=== PATIENT | female | born 2005 | race American Indian/Alaskan Native ===

== ENCOUNTER 2024-08-16 18:07 | Observation (INO) ==
--- NOTE | 2024-08-16 18:15 | ED Triage Note ---
Date of Service August 16, 2024 Provider in Triage Author: Shante Ontiveros History of Present Illness This patient was briefly evaluated while in triage. An abbreviated physical exam was performed. This patient is a 18-year-old Female who presents to the ED for evaluation of lower abdominal pain. States "I can barely walk at this point, it's so bad." States concern for UTI, ovarian cyst, or endometriosis based on family history. Denies UTI symptoms at this time. Onset of pain Wednesday. Last dose Tylenol yesterday. Menstrual period started 08/09/2024, but lasting longer than normal. Physical Exam VITALS: Vitals are noted on the nurse's note and reviewed by myself. GENERAL: This is a 18 year old female, in no acute distress, nondiaphoretic, well-developed well-nourished. SKIN: No obvious rashes, edema, erythema HEAD: Normocephalic atraumatic. EYES: Conjunctivae without injection, sclerae without icterus. NECK: No JVD. LUNGS: No retractions or accessory muscle use. MUSCULOSKELETAL: Normal gait. NEURO: Patient was alert and oriented to person place and time. No focal neurological deficits. Initial orders for labs and / or imaging were placed and patient was placed in the waiting area until a bed is available. Please see further documentation for the full ED course.
[2024-08-16] MEDS: ONDANSETRON INJ 2 MG/ML 2 ML VIAL IV STA (18:22)
[2024-08-16] MEDS: KETOROLAC TROMETHAMINE 15 MG/ML VIAL IV STA (18:22)
[2024-08-16 18:41] LABS: Basophils # (auto) 0.09 K/uL (0.00-0.20); Basophils % (auto) 0.5 %; Eosinophils # (auto) 0.09 K/uL (0.00-0.50); Eosinophils % (auto) 0.5 %; Hematocrit (blood only) 39.4 % (37.0-47.0); Hemoglobin 13.2 g/dl (12.0-16.0); Immature Granulocytes # (auto) 0.06 K/uL (0.01-0.20); Immature Granulocytes % (auto) 0.3 %; Lymphocytes # (auto) 1.52 K/uL (1.20-3.40); Lymphocytes % (auto) 7.8 %; Mean Corpuscular Hemoglobin 30.2 pg (25.0-34.0); Mean Corpuscular Hgb Conc 33.5 g/dL (32.0-36.0); Mean Corpuscular Volume 90.2 fL (80.0-100.0); Monocytes # (auto) 1.04 K/uL (0.11-0.59); Monocytes % (auto) 5.4 %; Neutrophils # (auto) 16.58 K/uL (1.40-6.50); Neutrophils % (auto) 85.5 %; Platelet Count 293 K/uL (130-400); RDW Standard Deviation 42.8 fL (36.4-46.3); Red Blood Count 4.37 M/uL (4.20-5.40); White Blood Count 19.38 K/ul (4.8-10.8)
[2024-08-16 18:50] LABS: Albumin Globulin Ratio 1.7 (0.9-2); Albumin Level 4.9 gm/dl (3.4-5.0); BUN Creatinine Ratio 23.9 (10-20); Bilirubin,Total 0.5 mg/dl (0.2-1.0); Calcium 9.8 mg/dl (8.6-10.3); Creatinine Clr Calc Pharmacy 109.5 ml/min; Globulin 2.9 gm/dl (2.5-4.0); Potassium 3.9 mmol/L (3.5-5.1); Total Protein 7.8 gm/dl (6.0-8.3)
[2024-08-16 18:53] LABS: Pregnancy Test, Serum Negative (Negative)
[2024-08-16] MEDS: SODIUM CHLORIDE 0.9% 1,000 ML IV ONE (21:06)
[2024-08-16] MEDS: ACETAMINOPHEN 1,000 MG/100 ML VIAL IV STA (21:06)
[2024-08-16] MEDS: OPTIRAY 320 100ml IV ONE (21:31)
--- NOTE | 2024-08-16 21:31 | Emergency Department Note ---
Impression & Plan Abdominal pain, Leukocytosis ED Provider Note ED Provider Note NAME: TYRONE BEATTY AGE:18 SEX: Female : 2005 ARRIVES VIA: Private vehicle INFORMANT: Patient ED PROVIDER(s): Rachel Huynh DO CHIEF COMPLAINT: Lower abdominal pain HPI: This is a 18-year-old female who presents emergency room complaining of lower abdominal pain. She states she had mild lower abdominal pain the last 2 days however today it seemed worse when she was moving around more. She states some of the pain does seem to go into her low back. She states it seems slightly worse on the left than the right. She denies fevers or chills but states she did have some hot and cold episodes but did not take her temperature. No recent change in bowel movements or urinary habits. No recent abnormal vaginal discharge or bleeding. Patient is sexually active, no new partners, no new concern for STD exposure. No dysparunia. No rash/sores. Patient states she has IBS, no other history of GI problems or prior abdominal surgeries. No recent URI symptoms. No recent change in medications or diet. PAST MEDICAL HISTORY:See Below PAST SURGICAL HISTORY:See Below FAMILY HISTORY:See Below SOCIAL HISTORY:See Below HOME MEDICATIONS:See Below ALLERGIES:See Below VITALS:See Below PHYSICAL EXAMINATION: GENERAL: alert, well appearing, well nourished, no distress, non-toxic EYE EXAM: normal conjunctiva, PERRL and EOM's grossly intact OROPHARYNX: no exudate, no erythema, lips, buccal mucosa, and tongue normal and mucous membranes are moist NECK: supple, no nuchal rigidity, no adenopathy, non-tender LUNGS: Clear to auscultation. Normal chest wall mechanics, no w/r/r HEART: no murmurs, S1 normal and S2 normal ABDOMEN: abdomen soft, pain with palpation in the LLQ/left suprapubic region, normo-active bowel sounds, no masses, no rebound or guarding. BACK: Back is symmetrical on inspection and there is no deformity, no CVA tenderness.MIld pain with palpation across the entire lumbar region. SKIN: no rashes, petechiae, orbruising UPPER EXTREMITIES: upper extremities are grossly normal. FROM, nml pulses b/l. LOWER EXTREMITIES: No pitting edema. FROM, nml pulses b/l. NEURO EXAM: Normal sensorium, cranial nerves II-XII grossly intact, normal speech, no facial droop,nogross weakness of arms, no gross weakness of legs. Gross sensation intact. No ataxia. Vital Signs: reviewed and remarkable Differential Diagnosis: Appendicitis, ovarian cyst, ovarian torsion, ectopic , TOA, PID, infections, diverticulitis, UTI, obstruction, mesenteric ischemia, aortic pathology, inflammatory bowel disease, renal colic, PUD, pancreatitis, biliary pathology, hernia, volvulus, constipation, as well as other pathologies. MEDICAL DECISION MAKING: This is a 18-year-old female who presents to the emergency department due to concern for left lower quadrant abdominal pain. Patient was concern for GI or etiology due to family history. She was afebrile and hemodynamically stable. Labs drawn and sent, IV established, patient monitored on telemetry. Urine was collected and sent and patient sent for pelvic ultrasound. Pelvic ultrasound reassuring. Labs revealed significant leukocytosis of greater than 19. Patient given IV Toradol, IV Tylenol, started on IV fluids. After discussion of differential diagnosis and her concerns in light of family history, we discussed additional CT imaging. Patient sent for CT of the abdomen and pelvis. We discussed all results at bedside. Patient complained of persistent pain. She was given a repeat dose of IV Toradol as well as oral Bentyl. Despite being well-appearing she complained of persistent pain and unclear etiology of the leukocytosis. Patient did have some nausea and metoclopramide was added. Patient given a second liter of IV fluids however still complaining of pain. Due to unclear etiology of pain failing nonnarcotic medications and accompanying significant leukocytosis, we discussed additional inpatient evaluation and she was in agreement. Case discussed with the hospitalist team for additional evaluation and management. Patient then given a dose of IV morphine once decision made for additional inpatient evaluation. Consultation: [id number]: Discussed with Dr. Sheldon, MD hospitalist team, for additional evaluation and mgmt. ER Treatment Provided: See below Diagnostics Interpreted By Me: -Cardiac Monitoring: An order was placed for continuous cardiac monitoring. The monitor shows a rate of 62 with normal sinus rhythm. -Laboratory studies: As stated above and show below. -Imaging studies: CT a/p - no ureterolithiasis, no diverticulitis Triage Nursing Note Reviewed Prior/Outside Records Reviewed Past Med/Surg History Problem List (Updated 08/17/24 @ 17:11 by Zoya Guerrero MD) Screening for STD (sexually transmitted disease) Vaginal discharge Adnexal tenderness, left Allergic reaction Leukocytosis (Acute) Abdominal pain (Acute) Medical History No significant past medical history Surgical History No significant past surgical history Family History Other Endometriosis Renal stone Social History Smoking Status: Never smoker Second Hand Exposure: No; Do You Dip or Chew Tobacco: No; Hx Alcohol Use: No Hx Substance Use: No Preferred Language: Tajik Communication Ability: Effective Learning Disabilities Resource Teacher Required: No Beliefs That Will Affect Care: None marital status: Single Current Living Situation: Family Current Living Situation Comment: sister current occupational status: student Feels Safe at Home: Yes Assistive Devices: None Allergies Allergies Allergy/AdvReac Type Severity Reaction Status Date / Time metoclopramide [From Reglan] Allergy Mild edema Verified 08/17/24 02:12 No Known Drug Allergies AdvReac Verified 04/18/24 14:41 pitted fruits Allergy Intermediate Uncoded 04/18/24 14:41 Home Meds Previous Rx's Medication Instructions Recorded dicyclomine 10 mg capsule 10 mg PO TID PRN abdominal pain 08/16/24 #20 caps doxycycline hyclate 100 mg capsule 100 mg PO BID #25 caps 08/18/24 Results & Data (ED) Vital Signs Vital Signs - 24 hr 08/16/24 18:11 08/16/24 19:50 08/16/24 19:50 Temperature 36.7 C Temperature Source Temporal Artery Scan Pulse Rate 102 H 68 Pulse Rate [Right Finger] 68 Pulse Rhythm Regular Pulse Rhythm [Right Finger] Regular Pulse Strength [Right Finger] Normal Respiratory Rate 18 13 13 Respiratory Effort / Characteristics Non-Labored Respiratory Depth Normal Respiratory Pattern Regular Blood Pressure 140/81 Blood Pressure [Left Arm] 112/68 Blood Pressure Mean 100 Blood Pressure Mean [Left Arm] 82 Blood Pressure Position [Left Arm] Lying Pulse Oximetry 98 96 96 Oxygen Delivery Method Room Air Room Air Room Air Sepsis Recent Fever Within 48 Hours No Sepsis New/Unexplained Change in Mental Status N/A Sepsis Action Taken by Nursing No Action Required 08/16/24 20:06 08/16/24 21:05 08/16/24 23:33 Temperature Temperature Source Pulse Rate 69 Pulse Rate [Right Finger] 67 61 Pulse Rhythm Pulse Rhythm [Right Finger] Regular Regular Pulse Strength [Right Finger] Normal Normal Respiratory Rate 16 20 Respiratory Effort / Characteristics Non-Labored Non-Labored Respiratory Depth Normal Normal Respiratory Pattern Regular Regular Blood Pressure Blood Pressure [Left Arm] 115/57 L 109/61 Blood Pressure Mean Blood Pressure Mean [Left Arm] 76 77 Blood Pressure Position [Left Arm] Lying Lying Pulse Oximetry 100 97 Oxygen Delivery Method Room Air Room Air Sepsis Recent Fever Within 48 Hours Sepsis New/Unexplained Change in Mental Status Sepsis Action Taken by Nursing 08/17/24 00:00 08/17/24 01:02 Temperature Temperature Source Pulse Rate 60 Pulse Rate [Right Finger] 53 L Pulse Rhythm Pulse Rhythm [Right Finger] Regular Pulse Strength [Right Finger] Normal Respiratory Rate 17 Respiratory Effort / Characteristics Non-Labored Respiratory Depth Normal Respiratory Pattern Regular Blood Pressure Blood Pressure [Left Arm] 109/65 Blood Pressure Mean Blood Pressure Mean [Left Arm] 79 Blood Pressure Position [Left Arm] Lying Pulse Oximetry 100 Oxygen Delivery Method Room Air Sepsis Recent Fever Within 48 Hours Sepsis New/Unexplained Change in Mental Status Sepsis Action Taken by Nursing Laboratory Data 08/18/24 06:36 08/18/24 06:36 Lab Results 08/16/24 08/16/24 Range/Units 18:19 22:15 WBC 19.38 H (4.8-10.8) K/ul RBC 4.37 (4.20-5.40) M/uL Hgb 13.2 (12.0-16.0) g/dl Hct 39.4 (37.0-47.0) % MCV 90.2 (80.0-100.0) fL MCH 30.2 (25.0-34.0) pg MCHC 33.5 (32.0-36.0) g/dL RDW Std Deviation 42.8 (36.4-46.3) fL RDW Coeff of Drea 13.0 (11.5-14.5) % Plt Count 293 (130-400) K/uL MPV 12.0 (9.4-12.4) fL Immature Gran % (Auto) 0.3 % Neut % (Auto) 85.5 % Lymph % (Auto) 7.8 % [place] % (Auto) 5.4 % Eos % (Auto) 0.5 % Baso % (Auto) 0.5 % Neut # (Auto) 16.58 H (1.40-6.50) K/uL Lymph # (Auto) 1.52 (1.20-3.40) K/uL [place] # (Auto) 1.04 H (0.11-0.59) K/uL Eos # (Auto) 0.09 (0.00-0.50) K/uL Baso # (Auto) 0.09 (0.00-0.20) K/uL Immature Gran # (Auto) 0.06 (0.01-0.20) K/uL Sodium 140 (136-145) mmol/L Potassium 3.9 (3.5-5.1) mmol/L Chloride 107 (98-107) mmol/L Carbon Dioxide 25 (21-32) mmol/L Anion Gap 8 (3-11) BUN 16 (6-23) mg/dl Creatinine 0.67 (0.6-1.2) mg/dl Est Cr Clr Drug Dosing 109.5 ml/min eGFR 128.24 BUN/Creatinine Ratio 23.9 H (10-20) Glucose 109 H (70-99(Fasting)) mg/dl Calcium 9.8 (8.6-10.3) mg/dl Total Bilirubin 0.5 (0.2-1.0) mg/dl AST 14 (13-39) U/L ALT 10 (7-52) U/L Alkaline Phosphatase 59 (34-104) U/L Total Protein 7.8 (6.0-8.3) gm/dl Albumin 4.9 (3.4-5.0) gm/dl Globulin 2.9 (2.5-4.0) gm/dl Albumin/Globulin Ratio 1.7 (0.9-2) Lipase 21 (11-82) U/L HCG, Qual Negative (Negative) Urine Color Yellow Urine Appearance Clear (Clear) Urine pH 6.5 (4.5-7.5) Ur Specific [place] > 1.045 H (1.000-1.030) Urine Protein Negative (Negative) Urine Glucose (UA) Negative (Negative) Urine Ketones Negative (Negative) Urine Blood 1+ H (Negative) Urine Nitrite Negative (Negative) Urine Bilirubin Negative (Negative) Urine Urobilinogen Negative (Negative) Ur Leukocyte Esterase Negative (Negative) Urine WBC (Auto) 21-50 H (0-5) /hpf Urine RBC (Auto) 3-5 H (0-2) /hpf U Hyaline Cast (Auto) 0-2 (0-2) /lpf U Epithel Cells (Auto) 0-2 (0-2) /hpf Urine Bacteria (Auto) None Seen (None Seen) Administered Medications Discontinued Medications Acetaminophen (Acetaminophen 325 Mg Tab) 650 mg PO Q4H PRN PRN Reason: Pain or Fever Stop: 09/16/24 02:41 Last Admin: 08/18/24 08:21 Dose: 650 mg Documented By: NATE Ceftriaxone Sodium (Ceftriaxone Sodium 350 Mg/Ml Im) 500 mg IM NOW ONE Stop: 08/18/24 14:46 Last Admin: 08/18/24 15:04 Dose: Not Given Documented By: NATE Dicyclomine HCl (Dicyclomine Hcl 20 Mg Tab) 20 mg PO NOW STA Stop: 08/16/24 23:37 Last Admin: 08/16/24 23:48 Dose: 20 mg Documented By: GORDON Diphenhydramine HCl (Diphenhydramine 50 Mg/Ml Vial) 50 mg IV NOW STA Stop: 08/17/24 02:12 Last Admin: 08/17/24 02:15 Dose: Not Given Documented By: GORDON Diphenhydramine HCl (Diphenhydramine 50 Mg/Ml Vial) 50 mg IV NOW STA Stop: 08/17/24 02:12 Last Admin: 08/17/24 02:14 Dose: 50 mg Documented By: GORDON Doxycycline Hyclate (Doxycycline Hyclate 100 Mg Cap) 100 mg PO BID STEVIE Stop: 08/27/24 20:59 Last Admin: 08/18/24 08:15 Dose: 100 mg Documented By: Admin: 08/17/24 21:34 Dose: 100 mg Documented By: VARUN Sodium Chloride (Nss) 1,000 mls @ 999 mls/hr IV .Q1H1M ONE Stop: 08/16/24 21:48 Last Infusion: 08/16/24 22:15 Dose: Infused Documented By: Admin: 08/16/24 21:06 Dose: 999 mls/hr Documented By: GORDON Acetaminophen (Ofirmev) 1,000 mg in 100 mls @ 400 mls/hr IV NOW STA Stop: 08/16/24 21:02 Last Infusion: 08/16/24 21:29 Dose: Infused Documented By: Admin: 08/16/24 21:06 Dose: 400 mls/hr Documented By: GORDON Cefepime HCl (Maxipime 2000mg) 2,000 mg in 20 mls @ 5 mls/min IV NOW STA; Protocol Stop: 08/17/24 01:31 Last Admin: 08/17/24 01:40 Dose: 5 mls/min Documented By: GORDON Sodium Chloride (Nss) 1,000 mls @ 125 mls/hr IV .Q8H STEVIE Stop: 08/17/24 10:41 Last Infusion: 08/17/24 11:26 Dose: Infused Documented By: Admin: 08/17/24 03:25 Dose: 125 mls/hr Documented By: SONALI Cefepime HCl (Maxipime 2000mg) 2,000 mg in 20 mls @ 5 mls/min IV Q8H STEVIE; Protocol Stop: 08/22/24 09:59 Last Admin: 08/18/24 10:47 Dose: 5 mls/min Documented By: Admin: 08/18/24 01:59 Dose: 5 mls/min Documented By: Admin: 08/17/24 18:06 Dose: 5 mls/min Documented By: Admin: 08/17/24 11:16 Dose: 5 mls/min Documented By: RIRI Ceftriaxone Sodium (Rocephin) 1,000 mg in 50 mls @ 100 mls/hr IV ONE ONE Stop: 08/18/24 15:59 Last Infusion: 08/18/24 16:05 Dose: Infused Documented By: Admin: 08/18/24 15:31 Dose: 100 mls/hr Documented By: NATE Ioversol (Optiray 320 100ml) 89 ml IV ONCE ONE Stop: 08/16/24 21:31 Last Admin: 08/16/24 21:31 Dose: 89 ml Documented By: DARIA Ketorolac Tromethamine (Ketorolac Tromethamine 15 Mg/Ml Vial) 30 mg IV NOW STA Stop: 08/16/24 18:15 Last Admin: 08/16/24 18:22 Dose: 30 mg Documented By: JARRED Ketorolac Tromethamine (Ketorolac Tromethamine 15 Mg/Ml Vial) 10 mg IV NOW ONE Stop: 08/17/24 01:14 Last Admin: 08/17/24 01:20 Dose: 10 mg Documented By: GORDON Ketorolac Tromethamine (Ketorolac Tromethamine 15 Mg/Ml Vial) 15 mg IV Q6H PRN PRN Reason: Pain Stop: 08/22/24 02:41 Last Admin: 08/18/24 10:46 Dose: 15 mg Documented By: Admin: 08/17/24 15:41 Dose: 15 mg Documented By: Admin: 08/17/24 09:28 Dose: 15 mg Documented By: Admin: 08/17/24 03:25 Dose: 15 mg Documented By: SONALI Lidocaine (Lidocaine 5% 1 Patch) 1 patch TD NOW STA Stop: 08/17/24 01:15 Last Admin: 08/17/24 01:20 Dose: 1 patch Documented By: GORDON Metoclopramide HCl (Metoclopramide Hcl Inj 5 Mg/Ml 2 Ml Vial) 2.5 mg IV ONE ONE Stop: 08/17/24 01:14 Last Admin: 08/17/24 01:20 Dose: 2.5 mg Documented By: GORDON Morphine Sulfate (Morphine Sulfate 2 Mg/Ml [place]) 2 mg IV NOW STA Stop: 08/17/24 01:29 Last Admin: 08/17/24 01:39 Dose: 2 mg Documented By: GORDON Ondansetron HCl (Ondansetron Inj 2 Mg/Ml 2 Ml Vial) 4 mg IV NOW STA Stop: 08/16/24 18:15 Last Admin: 08/16/24 18:22 Dose: 4 mg Documented By: RICHYW Imaging Data Radiologist's Impression: Pelvis Ultrasound 08/16/24 18:15 Exam(s): US PELVIS EXAM: US Pelvis Transabdominal and Transvaginal, Complete CLINICAL HISTORY: pelvic pain, vaginal bleeding. TECHNIQUE: Real-time complete transabdominal and transvaginal pelvic ultrasound with image documentation. Transvaginal imaging was used for better evaluation of the endometrium and adnexa. COMPARISON: No relevant prior studies available. FINDINGS: Uterus/cervix: The uterus measures 6.5 x 3.6 x 3.5 cm. The endometrial stripe measures only 2.8 mm. No focal abnormality or abnormal vascular flow noted. No myometrial mass. Right ovary: Nondominant follicles noted throughout the right ovary. The right ovary measures 3.4 x 1.9 x 2 cm. Internal vascular flow noted. No adnexal mass. Normal blood flow. Left ovary: Nondominant follicles noted throughout the left ovary. The left ovary measures 2.9 x 1.8 x 2.7 cm. No evidence for torsion. No adnexal mass. Free fluid: No free fluid. Bladder: Unremarkable as visualized. Wall is normal thickness for degree of distention. IMPRESSION: 1. The uterus and endometrial stripe are unremarkable. No focal endometrial abnormality or fluid in the endometrial canal. 2. Nondominant follicles noted involving both ovaries. No evidence for torsion. Electronically signed by: Bridger Bejarano MD 08/16/24 21:36 PM Abdomen/Pelvis CT 08/16/24 20:48 Exam(s): CT ABDOMEN + PELVIS With Contrast IV Amt: 89ml EXAM: CT Abdomen and Pelvis With Intravenous Contrast CLINICAL HISTORY: lower abd pain. TECHNIQUE: Axial computed tomography images of the abdomen and pelvis with intravenous contrast. CTDI is 10.64 mGy and DLP is 529.7 mGy-cm. Automated exposure control was utilized for the study. A dose lowering technique was utilized adhering to the principles of ALARA. CONTRAST: Patient received 89ml of IV contrast COMPARISON: Pelvic ultrasound performed earlier FINDINGS: Limitations: There is respiratory artifact, which degrades image quality on multiple image slices. Lung bases: Unremarkable. No mass. No consolidation. ABDOMEN: Liver: Unremarkable. No mass. Gallbladder and bile ducts: Unremarkable. No calcified stones. No ductal dilation. Pancreas: Unremarkable. No mass. No ductal dilation. Spleen: Unremarkable. No splenomegaly. Adrenals: Unremarkable. No mass. Kidneys and ureters: Unremarkable. No solid mass. No hydronephrosis. Stomach and bowel: The stomach is mildly distended with retained oral contents. No gastric mucosal thickening. No evidence of focal high- grade bowel obstruction. No obvious significant asymmetric, mucosal abnormality, accounting for respiratory artifact. Mild stool burden. PELVIS: Appendix: A normal caliber appendix is noted extending superiorly from the cecum in the posterior right pelvis. Bladder: Unremarkable. No mass. Reproductive: The follicular changes of both ovaries is suggested. Detailed evaluation limited. The uterus is grossly unremarkable. ABDOMEN and PELVIS: Intraperitoneal space: Unremarkable. No free air. No significant fluid collection. Bones/joints: No acute fracture. No dislocation. Soft tissues: Unremarkable. Vasculature: Unremarkable. No abdominal aortic aneurysm. Lymph nodes: Unremarkable. No enlarged lymph nodes. IMPRESSION: No evidence of focal high-grade bowel obstruction. No obvious significant asymmetric, mucosal abnormality, accounting for respiratory artifact. Mild stool burden. No free intraperitoneal fluid or pneumoperitoneum. Electronically signed by: Bridger Bejarano MD 08/16/24 22:08 PM Discharge Plan Visit Data Chief Complaint: Abdominal Pain Stated Complaint: PAIN ON LOWER ABD, PAIN ON OUTSIDE OF VAGINA ED Provider: Rachel Huynh Discharge Problem: Abdominal pain, Leukocytosis Patient Disposition: Admitted As Inpatient Condition: Good Discharge Instructions Interventions: ED Discharge Assessment Last Done: 08/17/24 02:31 Discharge Problem: Abdominal pain Qualifiers: Abdominal location: generalized Qualified Code(s): R10.84 - Generalized abdominal pain
--- NOTE | 2024-08-16 21:37 | Ultrasound Report ---
Exam(s): US PELVIS EXAM: US Pelvis Transabdominal and Transvaginal, Complete CLINICAL HISTORY: pelvic pain, vaginal bleeding. TECHNIQUE: Real-time complete transabdominal and transvaginal pelvic ultrasound with image documentation. Transvaginal imaging was used for better evaluation of the endometrium and adnexa. COMPARISON: No relevant prior studies available. FINDINGS: Uterus/cervix: The uterus measures 6.5 x 3.6 x 3.5 cm. The endometrial stripe measures only 2.8 mm. No focal abnormality or abnormal vascular flow noted. No myometrial mass. Right ovary: Nondominant follicles noted throughout the right ovary. The right ovary measures 3.4 x 1.9 x 2 cm. Internal vascular flow noted. No adnexal mass. Normal blood flow. Left ovary: Nondominant follicles noted throughout the left ovary. The left ovary measures 2.9 x 1.8 x 2.7 cm. No evidence for torsion. No adnexal mass. Free fluid: No free fluid. Bladder: Unremarkable as visualized. Wall is normal thickness for degree of distention. IMPRESSION: 1. The uterus and endometrial stripe are unremarkable. No focal endometrial abnormality or fluid in the endometrial canal. 2. Nondominant follicles noted involving both ovaries. No evidence for torsion. Electronically signed by: Bridger Bejarano MD 08/16/24 21:36 PM
--- NOTE | 2024-08-16 22:09 | CT Scan Report ---
Exam(s): CT ABDOMEN + PELVIS With Contrast IV Amt: 89ml EXAM: CT Abdomen and Pelvis With Intravenous Contrast CLINICAL HISTORY: lower abd pain. TECHNIQUE: Axial computed tomography images of the abdomen and pelvis with intravenous contrast. CTDI is 10.64 mGy and DLP is 529.7 mGy-cm. Automated exposure control was utilized for the study. A dose lowering technique was utilized adhering to the principles of ALARA. CONTRAST: Patient received 89ml of IV contrast COMPARISON: Pelvic ultrasound performed earlier FINDINGS: Limitations: There is respiratory artifact, which degrades image quality on multiple image slices. Lung bases: Unremarkable. No mass. No consolidation. ABDOMEN: Liver: Unremarkable. No mass. Gallbladder and bile ducts: Unremarkable. No calcified stones. No ductal dilation. Pancreas: Unremarkable. No mass. No ductal dilation. Spleen: Unremarkable. No splenomegaly. Adrenals: Unremarkable. No mass. Kidneys and ureters: Unremarkable. No solid mass. No hydronephrosis. Stomach and bowel: The stomach is mildly distended with retained oral contents. No gastric mucosal thickening. No evidence of focal high- grade bowel obstruction. No obvious significant asymmetric, mucosal abnormality, accounting for respiratory artifact. Mild stool burden. PELVIS: Appendix: A normal caliber appendix is noted extending superiorly from the cecum in the posterior right pelvis. Bladder: Unremarkable. No mass. Reproductive: The follicular changes of both ovaries is suggested. Detailed evaluation limited. The uterus is grossly unremarkable. ABDOMEN and PELVIS: Intraperitoneal space: Unremarkable. No free air. No significant fluid collection. Bones/joints: No acute fracture. No dislocation. Soft tissues: Unremarkable. Vasculature: Unremarkable. No abdominal aortic aneurysm. Lymph nodes: Unremarkable. No enlarged lymph nodes. IMPRESSION: No evidence of focal high-grade bowel obstruction. No obvious significant asymmetric, mucosal abnormality, accounting for respiratory artifact. Mild stool burden. No free intraperitoneal fluid or pneumoperitoneum. Electronically signed by: Bridger Bejarano MD 08/16/24 22:08 PM
[2024-08-16 22:40] LABS: Appearance Urine Clear (Clear); Bacteria Urine Automated None Seen (None Seen); Bilirubin Urine Negative (Negative); Blood Urine 1+ (Negative); Cast Urine Automated 0-2 /lpf (0-2); Color Urine Yellow; Epithelial Cell Urine Auto 0-2 /hpf (0-2); Glucose Urine UA Negative (Negative); Ketones Urine Negative (Negative); Leukocyte Esterase Urine Negative (Negative); Nitrite Urine Negative (Negative); Protein Urine Negative (Negative); Specific Gravity Urine > 1.045 (1.000-1.030); Urobilinogen Urine Negative (Negative); WBC Urine Automated 21-50 /hpf (0-5); pH Urine 6.5 (4.5-7.5)
[2024-08-16] MEDS: DICYCLOMINE HCL 20 MG TAB PO STA (23:48)
[2024-08-17] MEDS: METOCLOPRAMIDE HCL INJ 5 MG/ML 2 ML VIAL IV ONE (01:20)
[2024-08-17] MEDS: KETOROLAC TROMETHAMINE 15 MG/ML VIAL IV ONE (01:20)
[2024-08-17] MEDS: LIDOCAINE 5% 1 PATCH TD STA (01:20)
[2024-08-17] MEDS: MoRPHine SULFATE 2 MG/ML CARP IV STA (01:39)
[2024-08-17] MEDS: CEFEPIME 2000MG 2,000 MG/20 ML SYR IV STA (01:40)
--- NOTE | 2024-08-17 02:08 | History & Physical Report ---
Date of Service August 17, 2024 Assessment & Plan (1) Abdominal pain: Plan: 18yo female with no significant past medical history presenting with lower abdominal pain x 3 days. Patient with leukocytosis with WBC=19.38. Workup thus far has been largely unremarkable including normal LFTs and Lipase, normal CT of the abdomen and pelvic US. UA does show and elevated SG as well as some blood/RBCs and WBCs - ?recently passed stone? -Observation to medical -Repeat labs in AM - BMP, CBC and LFTs -Urine culture sent from ER, will follow results -Pain control with Tylenol and Toradol PRN. Will try to avoid further narcotics if possible -Zofran and Miralax PRN (2) Leukocytosis: Plan: Patient with leukocytosis WBC=19.38 with neutrophil predominance. Etiology uncertain at this time. She was given one dose of Cefepime -Will follow urine culture sent from ER -Hold off on further antibiotics at this time -Repeat CBC in AM (3) Allergic reaction: Plan: Patient developed some swelling over the right eye after being administered Reglan. Her mother reports that other family members are allergic to this medication as well. Patient denies rash, itching or swelling of the face/mouth or tongue. No SOB or stridor. -Benadryl 50mg IV given -Monitor F/E/N - NSS at 125mL/hr x 1L, electrolytes WNL, Regular diet as tolerated Ppx - low risk for DVT Code - Full Dispo - Observation to medical Patient's mother updated by phone - Kaylynn History of Present Illness Chief Complaint: lower abdominal pain Primary Care Provider: NO PCP Adelaida Jolly is a 18yo female with no significant past medical or surgical history presenting with lower abdominal pain which started on the evening of 08/13/24. Pain was mild at first but has become more intense through today. Pain is constant, severe, sharp in nature, located across the lower abdomen/pelvis, slightly worse on the left side with radiation into the back. She feels a lot of lower abdominal pressure as well. She has had some nausea but no vomiting as well as occasional chills. No urinary symptoms, no diarrhea or constipation. No vaginal discharge. She reports regular menstruation and is at the end of her cycle. No history of prior. In the ER she is afebrile, HD stable ER Course: Toradol 30mg IV + 10mg IV Zofan 4mg IV Reglan 2.5mg IV Lidoderm patch NSS x 1L Tylenol 1gm Dicyclomine 20mg po Morphine 2mg IV Cefepime 2gm Allergies Allergy/AdvReac Type Severity Reaction Status Date / Time metoclopramide [From Reglan] Allergy Mild edema Verified 08/17/24 02:12 No Known Drug Allergies AdvReac Verified 04/18/24 14:41 pitted fruits Allergy Intermediate Uncoded 04/18/24 14:41 Home Medications Medication Instructions Recorded Confirmed Type dicyclomine 10 mg capsule 10 mg PO TID PRN abdominal pain 08/16/24 Rx #20 caps Past Med/Surg History Problem List (Updated 08/17/24 @ 03:20 by Gisela Sheldon DO) Allergic reaction Leukocytosis (Acute) Abdominal pain (Acute) Medical History No significant past medical history Surgical History No significant past surgical history Family History (Updated 08/17/24 @ 02:06 by Gisela Sheldon DO) Other Endometriosis Renal stone Social History Smoking Status: Never smoker Second Hand Exposure: No; Do You Dip or Chew Tobacco: No; Hx Alcohol Use: No Hx Substance Use: No Preferred Language: Nepali Communication Ability: Effective Green End Man Required: No Beliefs That Will Affect Care: None marital status: Single Current Living Situation: Family Current Living Situation Comment: sister current occupational status: student Other Information That Helps Us Care for You: No Feels Safe at Home: Yes Safety Concerns: Feels Safe At This Time Assistive Devices: Glasses Review of Systems Review of Systems: All systems reviewed & are unremarkable except as noted in HPI & below Physical Exam Physical Exam: General: patient resting comfortably, NAD, non-toxic in appearance, AA&O x 4 Skin: warm, dry, intact, no rashes or lesions HEENT: NC/AT, PERRL, EOMI, anicteric sclera, conjunctiva without injection, external ear normal to inspection and nontender, nares patent, moist mucus membranes, dentition intact, no oropharyngeal lesions, neck supple, trachea midline, no LAD, no thyromegaly, no JVD Heart: +S1/S2, regular, no m/r/g Lungs: equal air entry bilaterally, no rales/rhonchi/wheezes Abd: +BS, soft, non-distended, tenderness in the lower abdomen and pelvis, no rebound or guarding Ext: warm, 2+ pulses in UE/LE bilaterally, no clubbing/cyanosis or edema Neuro: nonfocal, patient AA&O x 4, speech intact, no facial droop, moving all extremities on command with equal strength 5/5 Results & Data Results & Data Vital Signs (Past 12 Hours) Vital Signs Temp Pulse Pulse Resp BP BP Pulse Ox 08/17/24 01:02 53 L 17 109/65 100 08/17/24 00:00 60 08/16/24 23:33 61 20 109/61 97 08/16/24 21:05 67 16 115/57 L 100 08/16/24 20:06 69 08/16/24 19:50 68 13 96 08/16/24 19:50 68 13 112/68 96 08/16/24 18:11 36.7 C 102 H 18 140/81 98 O2 Del Method 08/17/24 01:02 Room Air 08/17/24 00:00 08/16/24 23:33 Room Air 08/16/24 21:05 Room Air 08/16/24 20:06 08/16/24 19:50 Room Air 08/16/24 19:50 Room Air 08/16/24 18:11 Room Air Laboratory Results Laboratory Results WBC 19.38 K/ul (4.8-10.8) H 08/16/24 18:19 RBC 4.37 M/uL (4.20-5.40) 08/16/24 18:19 Hgb 13.2 g/dl (12.0-16.0) 08/16/24 18:19 Hct 39.4 % (37.0-47.0) 08/16/24 18:19 MCV 90.2 fL (80.0-100.0) 08/16/24 18:19 MCH 30.2 pg (25.0-34.0) 08/16/24 18:19 MCHC 33.5 g/dL (32.0-36.0) 08/16/24 18:19 RDW Std Deviation 42.8 fL (36.4-46.3) 08/16/24 18:19 RDW Coeff of Drea 13.0 % (11.5-14.5) 08/16/24 18:19 Plt Count 293 K/uL (130-400) 08/16/24 18:19 MPV 12.0 fL (9.4-12.4) 08/16/24 18:19 Immature Gran % (Auto) 0.3 % 08/16/24 18:19 Neut % (Auto) 85.5 % 08/16/24 18:19 Lymph % (Auto) 7.8 % 08/16/24 18:19 [place] % (Auto) 5.4 % 08/16/24 18:19 Eos % (Auto) 0.5 % 08/16/24 18:19 Baso % (Auto) 0.5 % 08/16/24 18:19 Neut # (Auto) 16.58 K/uL (1.40-6.50) H 08/16/24 18:19 Lymph # (Auto) 1.52 K/uL (1.20-3.40) 08/16/24 18:19 [place] # (Auto) 1.04 K/uL (0.11-0.59) H 08/16/24 18:19 Eos # (Auto) 0.09 K/uL (0.00-0.50) 08/16/24 18:19 Baso # (Auto) 0.09 K/uL (0.00-0.20) 08/16/24 18:19 Immature Gran # (Auto) 0.06 K/uL (0.01-0.20) 08/16/24 18:19 Sodium 140 mmol/L (136-145) 08/16/24 18:19 Potassium 3.9 mmol/L (3.5-5.1) 08/16/24 18:19 Chloride 107 mmol/L (98-107) 08/16/24 18:19 Carbon Dioxide 25 mmol/L (21-32) 08/16/24 18:19 Anion Gap 8 (3-11) 08/16/24 18:19 BUN 16 mg/dl (6-23) 08/16/24 18:19 Creatinine 0.67 mg/dl (0.6-1.2) 08/16/24 18:19 Est Cr Clr Drug Dosing 109.5 ml/min 08/16/24 18:19 eGFR 128.24 08/16/24 18:19 BUN/Creatinine Ratio 23.9 (10-20) H 08/16/24 18:19 Glucose 109 mg/dl (70-99(Fasting)) H 08/16/24 18:19 Calcium 9.8 mg/dl (8.6-10.3) 08/16/24 18:19 Total Bilirubin 0.5 mg/dl (0.2-1.0) 08/16/24 18:19 AST 14 U/L (13-39) 08/16/24 18:19 ALT 10 U/L (7-52) 08/16/24 18:19 Alkaline Phosphatase 59 U/L (34-104) 08/16/24 18:19 Total Protein 7.8 gm/dl (6.0-8.3) 08/16/24 18:19 Albumin 4.9 gm/dl (3.4-5.0) 08/16/24 18:19 Globulin 2.9 gm/dl (2.5-4.0) 08/16/24 18:19 Albumin/Globulin Ratio 1.7 (0.9-2) 08/16/24 18:19 Lipase 21 U/L (11-82) 08/16/24 18:19 HCG, Qual Negative (Negative) 08/16/24 18:19 Urine Color Yellow 08/16/24 22:15 Urine Appearance Clear (Clear) 08/16/24 22:15 Urine pH 6.5 (4.5-7.5) 08/16/24 22:15 Ur Specific [place] > 1.045 (1.000-1.030) H 08/16/24 22:15 Urine Protein Negative (Negative) 08/16/24 22:15 Urine Glucose (UA) Negative (Negative) 08/16/24 22:15 Urine Ketones Negative (Negative) 08/16/24 22:15 Urine Blood 1+ (Negative) H 08/16/24 22:15 Urine Nitrite Negative (Negative) 08/16/24 22:15 Urine Bilirubin Negative (Negative) 08/16/24 22:15 Urine Urobilinogen Negative (Negative) 08/16/24 22:15 Ur Leukocyte Esterase Negative (Negative) 08/16/24 22:15 Urine WBC (Auto) 21-50 /hpf (0-5) H 08/16/24 22:15 Urine RBC (Auto) 3-5 /hpf (0-2) H 08/16/24 22:15 U Hyaline Cast (Auto) 0-2 /lpf (0-2) 08/16/24 22:15 U Epithel Cells (Auto) 0-2 /hpf (0-2) 08/16/24 22:15 Urine Bacteria (Auto) None Seen (None Seen) 08/16/24 22:15 Impressions Pelvis Ultrasound 08/16/24 18:15 Exam(s): US PELVIS EXAM: US Pelvis Transabdominal and Transvaginal, Complete CLINICAL HISTORY: pelvic pain, vaginal bleeding. TECHNIQUE: Real-time complete transabdominal and transvaginal pelvic ultrasound with image documentation. Transvaginal imaging was used for better evaluation of the endometrium and adnexa. COMPARISON: No relevant prior studies available. FINDINGS: Uterus/cervix: The uterus measures 6.5 x 3.6 x 3.5 cm. The endometrial stripe measures only 2.8 mm. No focal abnormality or abnormal vascular flow noted. No myometrial mass. Right ovary: Nondominant follicles noted throughout the right ovary. The right ovary measures 3.4 x 1.9 x 2 cm. Internal vascular flow noted. No adnexal mass. Normal blood flow. Left ovary: Nondominant follicles noted throughout the left ovary. The left ovary measures 2.9 x 1.8 x 2.7 cm. No evidence for torsion. No adnexal mass. Free fluid: No free fluid. Bladder: Unremarkable as visualized. Wall is normal thickness for degree of distention. IMPRESSION: 1. The uterus and endometrial stripe are unremarkable. No focal endometrial abnormality or fluid in the endometrial canal. 2. Nondominant follicles noted involving both ovaries. No evidence for torsion. Electronically signed by: Bridger Bejarano MD 08/16/24 21:36 PM Abdomen/Pelvis CT 08/16/24 20:48 Exam(s): CT ABDOMEN + PELVIS With Contrast IV Amt: 89ml EXAM: CT Abdomen and Pelvis With Intravenous Contrast CLINICAL HISTORY: lower abd pain. TECHNIQUE: Axial computed tomography images of the abdomen and pelvis with intravenous contrast. CTDI is 10.64 mGy and DLP is 529.7 mGy-cm. Automated exposure control was utilized for the study. A dose lowering technique was utilized adhering to the principles of ALARA. CONTRAST: Patient received 89ml of IV contrast COMPARISON: Pelvic ultrasound performed earlier FINDINGS: Limitations: There is respiratory artifact, which degrades image quality on multiple image slices. Lung bases: Unremarkable. No mass. No consolidation. ABDOMEN: Liver: Unremarkable. No mass. Gallbladder and bile ducts: Unremarkable. No calcified stones. No ductal dilation. Pancreas: Unremarkable. No mass. No ductal dilation. Spleen: Unremarkable. No splenomegaly. Adrenals: Unremarkable. No mass. Kidneys and ureters: Unremarkable. No solid mass. No hydronephrosis. Stomach and bowel: The stomach is mildly distended with retained oral contents. No gastric mucosal thickening. No evidence of focal high- grade bowel obstruction. No obvious significant asymmetric, mucosal abnormality, accounting for respiratory artifact. Mild stool burden. PELVIS: Appendix: A normal caliber appendix is noted extending superiorly from the cecum in the posterior right pelvis. Bladder: Unremarkable. No mass. Reproductive: The follicular changes of both ovaries is suggested. Detailed evaluation limited. The uterus is grossly unremarkable. ABDOMEN and PELVIS: Intraperitoneal space: Unremarkable. No free air. No significant fluid collection. Bones/joints: No acute fracture. No dislocation. Soft tissues: Unremarkable. Vasculature: Unremarkable. No abdominal aortic aneurysm. Lymph nodes: Unremarkable. No enlarged lymph nodes. IMPRESSION: No evidence of focal high-grade bowel obstruction. No obvious significant asymmetric, mucosal abnormality, accounting for respiratory artifact. Mild stool burden. No free intraperitoneal fluid or pneumoperitoneum. Electronically signed by: Bridger Bejarano MD 08/16/24 22:08 PM PG Care Time/CCT Total # of Minutes Spent Total Time Spent with Patient: Total time spent is greater than 50% in coordination of care (as documented) at patient's floor/unit and/or counseling patient: Coding Level of Care Code 04396 INT INP/OBS CARE 3/75MIN Diagnoses Abdominal pain R10.9 Leukocytosis D72.829 Allergic reaction T78.40XA
[2024-08-17] MEDS: diphenhydrAMINE 50 MG/ML VIAL IV STA ×2 (02:14→02:15)
[2024-08-17] MEDS ORDERED: POLYETHYLENE (MIRALAX) 17 GM PACK PO PRN (02:42)
[2024-08-17] MEDS ORDERED: ONDANSETRON INJ 2 MG/ML 2 ML VIAL IV PRN (02:42)
[2024-08-17] MEDS: KETOROLAC TROMETHAMINE 15 MG/ML VIAL IV PRN (03:25)
[2024-08-17] MEDS: SODIUM CHLORIDE 0.9% 1,000 ML IV SCH (03:25)
[2024-08-17 09:46] LABS: Hematocrit (blood only) 32.1 % (37.0-47.0); Hemoglobin 10.7 g/dl (12.0-16.0); Mean Corpuscular Hemoglobin 30.9 pg (25.0-34.0); Mean Corpuscular Hgb Conc 33.3 g/dL (32.0-36.0); Mean Corpuscular Volume 92.8 fL (80.0-100.0); Mean Platelet Volume 12.1 fL (9.4-12.4); Platelet Count 210 K/uL (130-400); RDW Coefficient of Variation 13.2 % (11.5-14.5); RDW Standard Deviation 44.4 fL (36.4-46.3); Red Blood Count 3.46 M/uL (4.20-5.40); White Blood Count 17.77 K/ul (4.8-10.8)
[2024-08-17 10:09] LABS: Albumin Globulin Ratio 1.9 (0.9-2); Albumin Level 3.9 gm/dl (3.4-5.0); BUN Creatinine Ratio 18.3 (10-20); Bilirubin,Total 1.1 mg/dl (0.2-1.0); C Reactive Protein 9.2 mg/dl (0-0.5); Calcium 8.6 mg/dl (8.6-10.3); Creatinine Clr Calc Pharmacy 125.8 ml/min; Globulin 2.1 gm/dl (2.5-4.0); Potassium 3.6 mmol/L (3.5-5.1)
[2024-08-17] MEDS: CEFEPIME 2000MG 2,000 MG/20 ML SYR IV SCH (11:16)
--- NOTE | 2024-08-17 17:12 | OB/GYN Consultation ---
Date of Consultation August 17, 2024 Assessment & Plan (1) Abdominal pain: (2) Adnexal tenderness, left: patient is a 18-year-old G0 female who was admitted for diffuse abdominal pain more on the epigastric and left lower quadrant areas, leukocytosis, Vital signs stable afebrile, Pelvic ultrasound within normal limits, Pelvic exam revealed vaginal discharge, cultures collected uterine and adnexal tenderness more on the left side, suggesting PID, She is already on IV cephalosporins recommend to add p.o. doxycycline until culture results will be back, I will follow-up with the culture results in few days, All questions were answered. (3) Vaginal discharge: (4) Screening for STD (sexually transmitted disease): History of Present Illness Attending Physician: Oh Caba History of Present Illness Patient is a 18-year-old G0 female who was admitted for under medicine for abdominal pain and leukocytosis, no obvious diagnosis. I was called for a [employer] consult. Patient already had pelvic ultrasound which is normal. . Patient states pain started on Wednesday evening, August 5 is a diffuse abdominal pain more on upper mid abdomen as well as left lower abdomen. It has been about the same and did not get any better. She was placed on IV cephalexin and urine culture is pending. Patient reports regular menstrual periods, lasting 7 to 9 days and with heavy flow. patient has been sexually active with same partner for the last 6 months, she had prior different partners before she has been using condoms only for contraception. She denies pain with intercourse. She normally gets menstrual cramps during which her heavy flow but this pain is completely different. She denies abnormal vaginal discharge, discharge smell or irritation. She denies any history of STDs, PID. She was screened for chlamydia about 6 months ago and it was negative. . Allergies Allergy/AdvReac Type Severity Reaction Status Date / Time metoclopramide [From Reglan] Allergy Mild edema Verified 08/17/24 02:12 No Known Drug Allergies AdvReac Verified 04/18/24 14:41 pitted fruits Allergy Intermediate Uncoded 04/18/24 14:41 Home Medications Medication Instructions Recorded Confirmed Type dicyclomine 10 mg capsule 10 mg PO TID PRN abdominal pain 08/16/24 Rx #20 caps Patient History Medical History No significant past medical history Surgical History No significant past surgical history Family History Other Endometriosis Renal stone Social History Smoking Status: Never smoker Second Hand Exposure: No; Do You Dip or Chew Tobacco: No; Hx Alcohol Use: No Hx Substance Use: No Preferred Language: Greek Communication Ability: Effective Chief Investigator Required: No Beliefs That Will Affect Care: None marital status: Single Current Living Situation: Family Current Living Situation Comment: sister current occupational status: student Other Information That Helps Us Care for You: No Feels Safe at Home: Yes Safety Concerns: Feels Safe At This Time Assistive Devices: None Review of Systems Constitutional: as per Subjective / HPI Physical Exam Constitutional: WD/WN, vitals as above well developed, well nourished and comfortable Comfortable laying in bed and looking at her iPad Genitourinary: normal external appearance Speculum/Bimanual Exam: normal appearance of the vagina, normal appearance of the cervix ( there is small yellowish discharge around the cervix and upper vagina), + adnexal tenderness ( more on the left side), + abnormal vaginal discharge, normal vaginal palpation, normal cervical palpation, + cervical motion tenderness ( absent) and + uterus tender Results & Data Vital Signs (Past 12 Hours) Vital Signs Temp Pulse Resp BP Pulse Ox O2 Del Method 08/17/24 15:34 37 C 63 18 99/65 L 100 Room Air 08/17/24 07:23 36.7 C 84 16 97/60 L 98 Room Air Laboratory Results Lab Results 08/16/24 08/16/24 08/17/24 Range/Units 18:19 22:15 09:09 WBC 19.38 H 17.77 H (4.8-10.8) K/ul RBC 4.37 3.46 L (4.20-5.40) M/uL Hgb 13.2 10.7 L (12.0-16.0) g/dl Hct 39.4 32.1 L (37.0-47.0) % MCV 90.2 92.8 (80.0-100.0) fL MCH 30.2 30.9 (25.0-34.0) pg MCHC 33.5 33.3 (32.0-36.0) g/dL RDW Std Deviation 42.8 44.4 (36.4-46.3) fL RDW Coeff of Drea 13.0 13.2 (11.5-14.5) % Plt Count 293 210 (130-400) K/uL MPV 12.0 12.1 (9.4-12.4) fL Immature Gran % (Auto) 0.3 % Neut % (Auto) 85.5 % Lymph % (Auto) 7.8 % [place] % (Auto) 5.4 % Eos % (Auto) 0.5 % Baso % (Auto) 0.5 % Neut # (Auto) 16.58 H (1.40-6.50) K/uL Lymph # (Auto) 1.52 (1.20-3.40) K/uL [place] # (Auto) 1.04 H (0.11-0.59) K/uL Eos # (Auto) 0.09 (0.00-0.50) K/uL Baso # (Auto) 0.09 (0.00-0.20) K/uL Immature Gran # (Auto) 0.06 (0.01-0.20) K/uL Sodium 140 136 (136-145) mmol/L Potassium 3.9 3.6 (3.5-5.1) mmol/L Chloride 107 108 H (98-107) mmol/L Carbon Dioxide 25 24 (21-32) mmol/L Anion Gap 8 4 (3-11) BUN 16 11 (6-23) mg/dl Creatinine 0.67 0.60 (0.6-1.2) mg/dl Est Cr Clr Drug Dosing 109.5 125.8 ml/min eGFR 128.24 131.70 BUN/Creatinine Ratio 23.9 H 18.3 (10-20) Glucose 109 H 129 H (70-99(Fasting)) mg/dl Calcium 9.8 8.6 (8.6-10.3) mg/dl Total Bilirubin 0.5 1.1 H D (0.2-1.0) mg/dl AST 14 11 L (13-39) U/L ALT 10 9 (7-52) U/L Alkaline Phosphatase 59 47 (34-104) U/L C-Reactive Protein 9.20 H (0-0.5) mg/dl Total Protein 7.8 6.0 D (6.0-8.3) gm/dl Albumin 4.9 3.9 (3.4-5.0) gm/dl Globulin 2.9 2.1 L (2.5-4.0) gm/dl Albumin/Globulin Ratio 1.7 1.9 (0.9-2) Lipase 21 (11-82) U/L Procalcitonin 0.15 (0-0.5) ng/ml HCG, Qual Negative (Negative) Urine Color Yellow Urine Appearance Clear (Clear) Urine pH 6.5 (4.5-7.5) Ur Specific [place] > 1.045 H (1.000-1.030) Urine Protein Negative (Negative) Urine Glucose (UA) Negative (Negative) Urine Ketones Negative (Negative) Urine Blood 1+ H (Negative) Urine Nitrite Negative (Negative) Urine Bilirubin Negative (Negative) Urine Urobilinogen Negative (Negative) Ur Leukocyte Esterase Negative (Negative) Urine WBC (Auto) 21-50 H (0-5) /hpf Urine RBC (Auto) 3-5 H (0-2) /hpf U Hyaline Cast (Auto) 0-2 (0-2) /lpf U Epithel Cells (Auto) 0-2 (0-2) /hpf Urine Bacteria (Auto) None Seen (None Seen) (1) Abdominal pain Abdominal location: generalized Qualified Code(s): R10.84 - Generalized abdominal pain
--- NOTE | 2024-08-17 17:18 | Hospitalist Progress Note ---
Date of Service August 17, 2024 - NO BILL Assessment & Plan (1) Abdominal pain: Plan: 18yo female with no significant past medical history presenting with lower abdominal pain x 3 days. Patient with leukocytosis with WBC=19.38. Workup thus far has been largely unremarkable including normal LFTs and Lipase, normal CT of the abdomen and pelvic US. UA does show and elevated SG as well as some blood/RBCs and WBCs - ?recently passed stone? -CBC w/ leukocytosis downtrending to 17.77 -CMP w/ TB of 1.1, stable electrolytes and renal function -Urinalysis abnormal w/ blood/WBCs but could be secondary to menstruation - urine culture pending -Gynecology consultation 08/17 - continue IV cefepime, add doxycycline. symptoms concerning for PID. - vaginal culture pending. -pain control with Tylenol and Toradol prn. avoid narcotics if possible. -Zofran and Miralax prn AM CBC, CMP (2) Allergic reaction: Plan: Patient developed some swelling over the right eye after being administered Reglan. Her mother reports that other family members are allergic to this medication as well. Patient denies rash, itching or swelling of the face/mouth or tongue. No SOB or stridor. -resolved. -Benadryl 50mg IV given Plan Ppx - low risk for DVT Code - Full Dispo - Observation to medical Admission and Anticipated Discharge Date Admission Date: August 17, 2024 Subjective Patient seen and examined this morning. Patient reports pain persisting in her abdomen. She reports that it is mostly in the suprapubic area but is also radiating throughout her abdomen. She states she has a family history of endometriosis. She states that she is on her menstrual cycle currently and has had cramping but nothing this severe in the pain. She denies any N/V. reports last BM was 08/16. Physical Exam Constitutional: WD/WN, vitals as above Eyes: PERRL, conjunctivae normal, anicteric sclerae Gastrointestinal (Abdomen): +BS, tenderness to palpation most promin ent in suprapubic area. Psychiatric: A+Ox3, euthymic affect Results & Data Results & Data Vital Signs (Past 12 Hours) Vital Signs Temp Pulse Resp BP Pulse Ox O2 Del Method 08/17/24 15:34 37 C 63 18 99/65 L 100 Room Air 08/17/24 07:23 36.7 C 84 16 97/60 L 98 Room Air PG Care Time/CCT Total # of Minutes Spent Total Time Spent with Patient: Total time spent is greater than 50% in coordination of care (as documented) at patient's floor/unit and/or counseling patient: Coding Level of Care Code None Diagnoses Generalized abdominal pain R10.84 Abdominal location: generalized Allergic reaction T78.40XA (1) Abdominal pain Abdominal location: generalized Qualified Code(s): R10.84 - Generalized abdominal pain
[2024-08-17] MEDS: DOXYCYCLINE HYCLATE 100 MG CAP PO SCH (21:34)
[2024-08-18 07:23] LABS: Hematocrit (blood only) 32.5 % (37.0-47.0); Hemoglobin 10.9 g/dl (12.0-16.0); Mean Corpuscular Hgb Conc 33.5 g/dL (32.0-36.0); Mean Corpuscular Volume 92.3 fL (80.0-100.0); Mean Platelet Volume 12.2 fL (9.4-12.4); Platelet Count 211 K/uL (130-400); RDW Coefficient of Variation 13.1 % (11.5-14.5); RDW Standard Deviation 44.3 fL (36.4-46.3); Red Blood Count 3.52 M/uL (4.20-5.40); White Blood Count 8.71 K/ul (4.8-10.8)
[2024-08-18 07:56] LABS: Albumin Level 3.8 gm/dl (3.4-5.0); BUN Creatinine Ratio 14.7 (10-20); Bilirubin Direct 0.1 mg/dl (0-0.2); Bilirubin,Total 0.4 mg/dl (0.2-1.0); Calcium 8.9 mg/dl (8.6-10.3); Potassium 3.7 mmol/L (3.5-5.1); Total Protein 6.2 gm/dl (6.0-8.3)
[2024-08-18] MEDS: ACETAMINOPHEN 325 MG TAB PO PRN (08:21)
[2024-08-18 09:03] LABS: C Reactive Protein 16.9 mg/dl (0-0.5)
[2024-08-18 13:14] LABS: Chlam trach RNA(Genit,Ureth,Ur DETECTED (NotDetected); GC(Neis gon)RNA(Genit,Ureth,Ur DETECTED (NotDetected)
--- NOTE | 2024-08-18 13:33 | Discharge Summary ---
Discharge Summary Date of Service August 18, 2024 Principal Dx & Hospital Course #1 = Principal Diagnosis (1) Abdominal pain: 18yo female with no significant past medical history presenting with lower abdominal pain x 3 days. Patient with leukocytosis with WBC=19.38. Workup thus far has been largely unremarkable including normal LFTs and Lipase, normal CT of the abdomen and pelvic US. UA does show and elevated SG as well as some blood/RBCs and WBCs - ?recently passed stone? -CBC w/ leukocytosis resolved (8.71) -CMP w/ stable electrolytes and renal function -Urinalysis abnormal w/ blood/WBCs but could be secondary to menstruation - urine culture pending -Gynecology consultation 08/17 - continue IV cefepime, add doxycycline. symptoms concerning for PID. - vaginal culture pending. -Patient positive for chylmadia + gonorrhea. Trich pending. - if + may will require additional course of Flagyl likely. -patient sent home on doxycycline 100mg BID x 13 additional days. Avoid sexual intercourse throughout treatment duration. patient educated to make sexual partners aware. -tylenol/NSAIDs for pain control at home. -patient educated to follow up with gynecology outpatient. (2) Allergic reaction: Patient developed some swelling over the right eye after being administered Reglan. Her mother reports that other family members are allergic to this medication as well. Patient denies rash, itching or swelling of the face/mouth or tongue. No SOB or stridor. -resolved. -Benadryl 50mg IV given Plan Updated patient's mother at bedside. discussed w/ gynecology 08/18 Admission HPI Per Admitting Provider Adelaida Jolly is a 18yo female with no significant past medical or surgical history presenting with lower abdominal pain which started on the evening of 08/13/24. Pain was mild at first but has become more intense through today. Pain is constant, severe, sharp in nature, located across the lower abdomen/pelvis, slightly worse on the left side with radiation into the back. She feels a lot of lower abdominal pressure as well. She has had some nausea but no vomiting as well as occasional chills. No urinary symptoms, no diarrhea or constipation. No vaginal discharge. She reports regular menstruation and is at the end of her cycle. No history of prior. In the ER she is afebrile, HD stable ER Course: Toradol 30mg IV + 10mg IV Zofan 4mg IV Reglan 2.5mg IV Lidoderm patch NSS x 1L Tylenol 1gm Dicyclomine 20mg po Morphine 2mg IV Cefepime 2gm Discharge Exam Constitutional WD/WN, vitals as above Eyes PERRL, conjunctivae normal, anicteric sclerae Gastrointestinal (Abdomen) +BS, tenderness to palpation suprapubic area Psychiatric A+Ox3, euthymic affect Discharge Plan Discharge Items Patient Disposition: Home - Self-Care Reason For Visit: ABDOMINAL PAIN, LEUKOCYTOSIS Discharge Diagnosis: PID Condition on Discharge: Good Activity: Resume your previous activity Non-emergency contact: Primary Care Provider and Director Of Healthcare Systems Call non-emergency contact if: you have any medication questions, your symptoms worsen, your pain is not controlled and you have a fever Follow-up/Referrals: Zoya Guerrero MD [Physician] - PCP,GINGER [Primary Care Provider] - Diet: Regular Addtl Attending Provider Instructions: Ms. Jolly, You were recently hospitalized for abdominal pain. You were evaluated by gynecology who evaluated you and noted that the findings were consistent with Pelvic inflammatory disease. You tested positive for chlamydia and gonorrhea. Please see recommendations below regarding discharge. 1. Please take Doxycycline twice daily for the next 13 days. Your next dose will be this evening, 08/18/2024. 2. Please take your antibiotic with food to avoid GI upset. You may also trial a probiotic to see if this aides with GI side effects too. 3. The airport operations duty manager is to call you next week with the remainder of your culture results. - Please reach out to their office next week if you do not hear from them. The phone number is listed above. 4. You may use Tylenol or NSAIDs for the pain. If using NSAIDs on a regular basis, please use OTC Prilosec to help prevent GI upset. 5. You may resume any previous outpatient medications. 6. Please obtain from sexual intercourse during treatment. Please follow up with a airport operations duty manager for further recommendations regarding when sexual intercourse is safe to resume. 7. Please inform previous partners of the infection so that they can also be treated. If you develop any worsening abdominal pain, fevers, chills, nausea, vomiting please report back to the ER for further evaluation. Sincerely, Mara Griffin PA-C Pending Studies at Discharge: Yes Studies:: Vaginal and urine cultures Stand-Alone Forms: My [facility], Work/School Release, Smoking Cessation Medications and DC Order Prescriptions: New dicyclomine 10 mg capsule 10 mg PO TID PRN (Reason: abdominal pain) Qty: 20 0RF doxycycline hyclate 100 mg Capsule 100 mg PO BID Qty: 25 0RF Discharge Orders: Discharge Order (Routine); Ordered 08/18/24 Ordered By: Mara Griffin Admission Data Admit Date/Time: 08/17/24 01:59 Attending Provider: Oh Caba Admit Provider: Gisela Sheldon Primary Care Provider: PCP,NO Other Providers: Gisela Sheldon; Gal Gomez; Trang Jeff; Trice Barba; Winston Segovia; Zoya Guerrero; Mauricio Rivers; Pollo Butler; Siobhan Escalante; Brandee Jennings; Jen Franklin; Laura Epperson; Milagros Espinal; Yaritza Tabor; Nancy Jose; Phan Solis; Josefina Antoine Hospital Stay Data Consultations 08/17/24 01:31 ED Decision to Admit Stat 08/17/24 10:04 Consult Gynecology Routine Diagnostic Imagining Performed 08/16/24 18:15 US pelvic complete Stat US transvaginal Stat 08/16/24 20:48 CT abd pelvis IV con only Stat Pending Results Patient Have Any Pending Studies at Discharge: Yes Discharge Instructions Given to Patient (Per Discharging Provider) Ms. Jolly, Temo were recently hospitalized for abdominal pain. You were evaluated by gynecology who evaluated you and noted that the findings were consistent with Pelvic inflammatory disease. You tested positive for chlamydia and gonorrhea. Please see recommendations below regarding discharge. 1. Please take Doxycycline twice daily for the next 13 days. Your next dose will be this evening, 08/18/2024. 2. Please take your antibiotic with food to avoid GI upset. You may also trial a probiotic to see if this aides with GI side effects too. 3. The airport operations duty manager is to call you next week with the remainder of your culture results. - Please reach out to their office next week if you do not hear from them. The phone number is listed above. 4. You may use Tylenol or NSAIDs for the pain. If using NSAIDs on a regular basis, please use OTC Prilosec to help prevent GI upset. 5. You may resume any previous outpatient medications. 6. Please obtain from sexual intercourse during treatment. Please follow up with a airport operations duty manager for further recommendations regarding when sexual intercourse is safe to resume. 7. Please inform previous partners of the infection so that they can also be treated. If you develop any worsening abdominal pain, fevers, chills, nausea, vomiting please report back to the ER for further evaluation. Sincerely, Mara Griffin PA-C Total Time Total Time Spent Total Time Spent (In Minutes): 45 Total Time Includes: Examination of the Patient, Discharge Planning, Medication Reconciliation and Communication With Other Providers Coding Level of Care Code 37662 INP/OBS DISCH >30 MIN Diagnoses Generalized abdominal pain R10.84 Abdominal location: generalized Allergic reaction T78.40XA
[2024-08-18] MEDS ORDERED: cefTRIAXone SODIUM 350 MG/ML IM IM ONE (14:20)
[2024-08-18 14:24] LABS: Trichomonas vag by NAA Not Detected (NotDetected)
[2024-08-18] MEDS ORDERED: cefTRIAXone SODIUM 1,000 MG in DEXTROSE 5% 50 ML IV STA (14:50)
[2024-08-18] MEDS: cefTRIAXone SODIUM 350 MG/ML IM IM ONE (15:04)
[2024-08-18 15:12] VITALS: BP 116/73; PULSE 84; RESP 20; TEMP 98.6; O2SAT 99
[2024-08-18] MEDS: cefTRIAXone SODIUM 1,000 MG MINI-B 50ML IV ONE (15:31)
--- NOTE | 2024-08-19 17:45 | Gynecologic Progress Note ---
Date of Service August 19, 2024 Assessment & Plan Admission and Anticipated Discharge Date Admission Date: August 17, 2024 Subjective I called the patient to let her know about culture results. chlamydia positive, gonorrhea positive. she was was of those she was prescribed doxycycline for 14 days for chlamydia and she already received cephalosporins IV for gonorrhea during hospital stay. Her vaginal culture is back today and is positive for Gardnerella vaginalis. I recommended to use Flagyl 500 mg 2 times a day for 7 days. I discussed that chlamydia gonorrhea are sexual transmitted they can cause infertility in the future if not treated recommended to ask her partner/s to be really treated as well as herself use condoms all the time. I recommended follow-up in our office in 2 to 3 weeks. All questions were answered.
== END 2024-08-18 16:10 | disposition home or self-care (01) ==
LOC: ED 18:07 → 3W 18:07 → SUATTDRO 08-17 01:59 → 3W 08-17 02:31